=== PATIENT | male | born 1975 | race Caucasian/White ===

== ENCOUNTER → 2020-10-26 08:56 | Outpatient (BNVA) | payer MEDICAID, SELFPAY | PROVIDERS: Family Provider Nurse Practitioner; Visit Provider Nurse Practitioner Family | DX: I10 Essential (primary) hypertension (principal) | CPT/HCPCS: 80053; 80061; 84443; 85025 ==

== ENCOUNTER 2021-01-10 20:00 | Outpatient (CLI) | payer MEDICAID, SELFPAY | END 2021-01-10 20:01 | disposition home or self-care (01) | LOC: SLEEP 01-11 09:32 | PROVIDERS: Family Provider Nurse Practitioner; Visit Provider Nurse Practitioner Family | DX: G47.33 Obstructive sleep apnea (adult) (pediatric) (principal) | CPT/HCPCS: 95810 ==

== ENCOUNTER 2021-08-06 15:37 | Emergency (ER) | payer MEDICAID, SELFPAY ==
[2021-08-06 15:44] VITALS: BP 159/93; PULSE 101; RESP 18; TEMP 37.2; O2SAT 96; BMI 39.5
--- NOTE | 2021-08-06 16:34 | ECG_ITS ---
[facility] Test Date: 2021-08-06 Pat Name: Ambrose Solis Department: Room: Gender: Male Senior Net Engineer: : 1975 Requested By: Alfredo Palm Order Number: [id number] Parada MD: Irena Gibbons M.D. Measurements Intervals [place] Rate: 99 P: 45 AR: 143 QRS: 30 QRSD: 91 T: 65 QT: 326 QTc: 419 Interpretive Statements SINUS RHYTHM No previous ECG available for comparison Electronically Signed On 08-07-2021 12:09:13 ACCOUNTING FILE CLERK by Irena Gibbons M.D. [id number]
--- NOTE | 2021-08-06 16:34 | XRR_ITS ---
PROCEDURE INFORMATION: Exam: XR Chest Exam date and time: 08/06/2021 4:34 PM Age: 46 years old Clinical indication: Pain; Chest pressure; Additional info: Chest pain TECHNIQUE: Imaging protocol: XR of the chest. Views: 1 view. COMPARISON: No relevant prior studies available. FINDINGS: Lungs: Unremarkable. No consolidation. Small left upper lobe calcified granuloma. Pleural spaces: Unremarkable. No pleural effusion. No pneumothorax. Heart/Mediastinum: Unremarkable. No cardiomegaly. Bones/joints: Unremarkable. XR/XR chest 1V portable [id number] IMPRESSION: No acute findings.
--- NOTE | 2021-08-06 16:34 | W.ED.GENADLT ---
HPI - General Adult General: Chief complaint: General Medical Stated complaint: CHEST PAIN, SLEEPING DIFFICULTY Time Seen by Provider: 08/06/21 16:34 History of Present Illness: Mr Solis is a 46-year-old gentleman with significant past medical history of obesity, hypertension, GABBI not on CPAP who presents the emergency department due to generalized concerns. He reports a longstanding history of difficulty sleeping though this is perhaps been worse over the past few weeks. He endorses less than 1 hour of interrupted sleep per night. Primarily if this is related to his heart racing when he lays down and mild associated shortness of breath. He denies waking up panicked though does endorse history of sleep study which showed GABBI however he did not tolerate his CPAP machine. Additionally he has had intermittent episodes of pressure in his left anterior chest without other typical cardiac features. The one today occurred around noon lasted perhaps half an hour. Intensity of symptoms was moderate. Course is improved. He has noticed new symptom which is bilateral lower extremity edema which is mild but new. No other specific change in health, exacerbating, or relieving factors identified. Onset (ago): hour(s) Severity: moderate Review of Systems General: Reports: 10 or more systems reviewed and unremarkable except in HPI and below PFSH ED PFSH: Medical History Essential hypertension GABBI (obstructive sleep apnea) Surgical History History of appendectomy History of tonsillectomy Social History (Updated 08/15/21 @ 10:10 by Pita Montenegro MA) Smoking and tobacco status: current every day smoker (1 ppd 26 yrs) cigarettes Packs smoked per day: 1 Years cigarettes smoked: 26 Alcohol intake: never Physical Exam Const: COMMON NORMALS: alert GENERAL APPEARANCE: cooperative and well developed NUTRITIONAL APPEARANCE: obese HENMT: COMMON NORMALS: normocephalic and atraumatic HEAD & SCALP: normocephalic and atraumatic Eye: COMMON NORMALS: conjunctivae normal CONJUNCTIVA: Yes conjunctivae normal SCLERA: sclerae normal Neck/C-Spine: COMMON NORMALS: supple GENERAL: Yes trachea midline Resp: COMMON NORMALS: normal respiratory effort EFFORT & INSPECTION: Yes able to speak in complete sentences Cardio: COMMON NORMALS: regular rhythm RATE: tachycardic RHYTHM: regular rhythm GI: COMMON NORMALS: Soft to palpation PALPATION: Yes Soft to palpation and No Tenderness to palpation present (GI) PERCUSSION: normal to percussion Extremity: GENERAL: Yes normal exam except as noted and Yes edema (1+ below mid calf) Neuro: COMMON NORMALS: moves all extremities SENSORIUM/ORIENTATION: Yes alert and No Orientation impaired Psych: COMMON NORMALS: mental status grossly normal and Normal thought process present THOUGHT PROCESS: Normal thought process present Course ED course: - Patient was seen and evaluated by me at bedside - Patient placed on cardiac monitors, IV access obtained - Initial evaluation notable for exam as above -Antihypertensive ordered with good therapeutic effect - Labs notable for no leukocytosis, mildly increased hemoglobin are within normal limits. No acute hypotension. Troponin and delta troponin negative. Mild transaminitis of unclear etiology. BNP normal. Urinalysis not concerning for urinary tract infection. - Imaging notable for no acute finding noted on chest x-ray - Upon serial reexamination after treatment the patient was mildly improved - Based on patient history, evaluation, labs, and imaging as interpreted the most likely cause of the patient's condition is multifactorial. - The results of ED evaluation were discussed with the patient. Challenging situation, patient has various concerns and based on ED evaluation he did not require hospitalization at this time. He does require multiple services for outpatient follow-up. One of the greatest concerns that the patient has is his sleep difficulty however given his history of sleep apnea I believe prescription medications for sleep would be potentially harmful and therefore I will not prescribe. I did discuss possibility of [id number] medications. - I discussed prescriptions and/or symptomatic cares (if applicable) including appropriate and responsible use, followup plan, and return precautions. The patient verbalized understanding and felt safe for discharge. - Patient discharged in satisfactory condition. Note: Click bubbles or prepopulated narayanan in note writing are used for assistance with data collection and billing and are inherently more limited than narrative and other text portions of this note. Please use narrative for additional clinical history and defer to narrative/free test for any case of contradictory information. If information appears in only free text or click bubble it should be considered present or absent as reported. Please contact note customs entry writer for clarifications of clinical information or contradictory information. MDM is a brief summary, contradictory or erroneous seeming information should be clarified and full note should be reviewed. Vital Signs: Vital signs: Vital Signs Temperature 98.9 F 08/06/21 15:44 Pulse Rate 73 08/06/21 21:48 Respiratory Rate 22 H 08/06/21 21:48 Blood Pressure 179/100 08/06/21 21:48 Pulse Oximetry 98 08/06/21 21:48 MDM - General Adult Medical Decision Making 46-year-old gentleman presenting to the emergency department with concerns. ED evaluation without acute pathology requiring inpatient evaluation. I will message case management for assistance in scheduling outpatient follow-up. Satisfactory for discharge. Medical Records I reviewed the patient's medical records. Lab Data I reviewed the patient's lab results. : 08/06/21 17:06 08/06/21 17:06 Radiology Impressions Chest X-Ray 08/06/21 16:34 IMPRESSION: No acute findings. Laboratory Results WBC 9.6 10^3/uL (4.0-10.0) 08/06/21 17:06 RBC 5.70 10^6/uL (4.1-5.3) H 08/06/21 17:06 Hgb 16.6 g/dL (11.7-16.6) 08/06/21 17:06 Hct 49.4 % (42.0-52.0) 08/06/21 17:06 MCV 86.7 fl (80-94) 08/06/21 17:06 MCH 29.1 pg (28.0-34.0) 08/06/21 17:06 MCHC 33.6 g/dL (30.0-36.0) 08/06/21 17:06 RDW 12.6 % (12.1-15.1) 08/06/21 17:06 Plt Count 238 10^3/cmm (130-400) 08/06/21 17:06 MPV 9.2 fL (7.4-10.4) 08/06/21 17:06 Neut % (Auto) 49.6 % 08/06/21 17:06 Lymph % (Auto) 36.1 % 08/06/21 17:06 [place] % (Auto) 6.9 % 08/06/21 17:06 Eos % (Auto) 5.6 % 08/06/21 17:06 Baso % (Auto) 1.3 % 08/06/21 17:06 Neut # (Auto) 4.74 10^3/uL (1.8-7.7) 08/06/21 17:06 Lymph # (Auto) 3.5 10^3/uL (0.8-4.8) 08/06/21 17:06 [place] # (Auto) 0.7 10^3/uL (0.2-0.9) 08/06/21 17:06 Eos # (Auto) 0.5 10^3/uL (0.0-0.8) 08/06/21 17:06 Baso # (Auto) 0.1 10^3/uL (0.0-0.1) 08/06/21 17:06 Nucleated RBC % (auto) 0 % 08/06/21 17:06 Nucleated RBCs # 0.0 /100WBC 08/06/21 17:06 Sodium 139 mmol/L (136-145) 08/06/21 17:06 Potassium 4.1 mmol/L (3.5-5.1) 08/06/21 17:06 Chloride 101 mmol/L (98-107) 08/06/21 17:06 Carbon Dioxide 26 mmol/L (22-29) 08/06/21 17:06 Anion Gap 16.1 (5-19) 08/06/21 17:06 BUN 11 mg/dL (6-20) 08/06/21 17:06 Creatinine 0.8 mg/dL (0.7-1.2) 08/06/21 17:06 GFR Calculation 104.1 mL/min (90-130) 08/06/21 17:06 Glucose 130 mg/dL (65-115) H 08/06/21 17:06 Calculated Osmolality 289 mOsm/kg (285-295) 08/06/21 17:06 Calcium 9.8 mg/dL (8.5-10.5) 08/06/21 17:06 Total Bilirubin 0.3 mg/dL (0.15-1.2) 08/06/21 17:06 AST 32 U/L (0-40) 08/06/21 17:06 ALT 68 U/L (0-41) H 08/06/21 17:06 Alkaline Phosphatase 57 IU/L (40-130) 08/06/21 17:06 Troponin T Baseline 11 ng/L (0-15) 08/06/21 17:06 Troponin T 120 Minute 10.49 ng/L (0-15) 08/06/21 19:30 Delta Troponin T Not Reportable 08/06/21 19:30 NT-Pro-B Natriuret Pep 5 pg/mL (0-125) 08/06/21 17:06 Total Protein 6.4 g/dL (6.6-8.7) L 08/06/21 17:06 Albumin 4.0 g/dL (3.5-5.2) 08/06/21 17:06 Globulin 2.4 g/dL (1.3-4.6) 08/06/21 17:06 Lipase 48 U/L (13-60) 08/06/21 17:06 TSH 0.83 uIU/mL (0.27-4.20) 08/06/21 17:06 Urine Color Yellow (Yellow) 08/06/21 20:07 Urine Appearance Clear (CLEAR) 08/06/21 20:07 Urine pH 6.5 (5-7) 08/06/21 20:07 Ur Specific [place] 1.015 (1.005-1.030) 08/06/21 20:07 Urine Protein Neg (Negative) 08/06/21 20:07 Urine Glucose (UA) Norm (Normal) 08/06/21 20:07 Urine Ketones Negative (Negative) 08/06/21 20:07 Urine Blood Neg (Negative) 08/06/21 20:07 Urine Nitrate Negative (Negative) 08/06/21 20:07 Urine Bilirubin Neg (Negative) 08/06/21 20:07 Urine Urobilinogen Norm mg/dL (Negative) 08/06/21 20:07 Ur Leukocyte Esterase Negative (Negative) 08/06/21 20:07 EKG Data EKG 1: I personally reviewed and interpreted this EKG as follows: EKG interpretation date: 08/06/21 EKG interpretation time: 18:37 Interpretation: Twelve-lead EKG shows a regular rhythm at a rate of 85. KOSTAS 156, QRS ration 103, QTc 365. Normal axis. Interpretation: Sinus rhythm. Computer generated interpretation: Chest X-Ray 08/06/21 16:34 IMPRESSION: No acute findings. Discharge Plan Discharge Patient Disposition: Home Clinical Impression: GABBI (obstructive sleep apnea), Essential hypertension, Insomnia, Chest pain Condition: Stable Prescriptions: New Coreg 3.125 mg tablet 3.125 mg PO BID Qty: 60 0RF Rx Instructions: must administer with a meal/food No Action lisinopril 20 mg tablet 20 mg PO DAILY Qty: 90 1RF trazodone 50 mg tablet 25 mg PO DAILY Qty: 30 0RF niacin 50 mg Tablet 50 mg PO DAILY 0RF loratadine 10 mg Tablet 10 mg PO DAILY 0RF Discharge Orders: Discharge ED (Routine); Ordered 08/06/21 Ordered By: Alfredo Palm Discharge Diet: Usual diet Discharge Activity: Resume usual activity Patient Instructions: Chest Pain (ED), Hypertension (ED), Insomnia (ED), Obstructive Sleep Apnea Activity Restrictions/Additional Instructions: Thank you for visiting the emergency department. You were seen and evaluated for chest pain, high blood pressure, and sleep difficulties. As discussed the most likely cause of your symptoms is multifactorial and requires follow-up in the outpatient setting. I will message our disease case manager rn for follow-up with cardiology for outpatient testing, I will also message for ENT follow-up. Return to the ED for anything that you are concerned about and feel need ED evaluation. Coding Level of Care Code ED Distribution Field Engineer for Kadi Fwaugusto Exam Comprehensive
[2021-08-06 17:16] LABS: Basophils # 0.1 10^3/uL (0.0-0.1); Basophils % 1.3 %; Eosinophils # 0.5 10^3/uL (0.0-0.8); Eosinophils % 5.6 %; Hematocrit 49.4 % (42.0-52.0); Hemoglobin 16.6 g/dL (11.7-16.6); Lymphocytes # 3.5 10^3/uL (0.8-4.8); Lymphocytes % 36.1 %; Mean Corpuscular HGB Conc 33.6 g/dL (30.0-36.0); Mean Corpuscular Hemoglobin 29.1 pg (28.0-34.0); Mean Corpuscular Volume 86.7 fl (80-94); Mean Platelet Volume 9.2 fL (7.4-10.4); Monocytes # 0.7 10^3/uL (0.2-0.9); Monocytes % 6.9 %; Neutrophils # 4.74 10^3/uL (1.8-7.7); Neutrophils % 49.6 %; Nucleated Red Blood Cells % 0 %; Platelet Count 238 10^3/cmm (130-400); Red Cell Distribution Width 12.6 % (12.1-15.1); White Blood Count 9.6 10^3/uL (4.0-10.0)
[2021-08-06] MEDS: labetalol 5 mg/mL SDV 20mL 10 MG IVP (18:04)
[2021-08-06 18:08] LABS: Troponin(5th) Baseline 11 ng/L (0-15)
[2021-08-06 18:09] VITALS: BP 108/75; PULSE 93; RESP 14; O2SAT 96
[2021-08-06 18:15] LABS: Alanine Aminotransferase 68 U/L (0-41); Alkaline Phosphatase 57 IU/L (40-130); Anion Gap 16.1 (5-19); Aspartate Amino Transferase 32 U/L (0-40); Blood Urea Nitrogen 11 mg/dL (6-20); Calcium 9.8 mg/dL (8.5-10.5); Carbon Dioxide 26 mmol/L (22-29); Chloride 101 mmol/L (98-107); Creatinine Clr Calc Pharmacy 148.5807; Globulin 2.4 g/dL (1.3-4.6); Glomerular Filtration Rate 104.1 mL/min (90-130); Glucose 130 mg/dL (65-115); Lipase 48 U/L (13-60); NT Pro B Type Natriuretic Pept 5 pg/mL (0-125); Osmolality Calculated 289 mOsm/kg (285-295); Potassium 4.1 mmol/L (3.5-5.1); Sodium 139 mmol/L (136-145); Thyroid Stimulating Hormone 0.83 uIU/mL (0.27-4.20); Total Bilirubin 0.3 mg/dL (0.15-1.2); Total Protein 6.4 g/dL (6.6-8.7)
--- NOTE | 2021-08-06 18:34 | ECG_ITS ---
[facility] Test Date: 2021-08-06 Pat Name: Ambrose Solis Department: Room: Gender: Male Grain Scooper: : 1975 Requested By: Alfredo Palm Order Number: [id number] Parada MD: Irena Gibbons M.D. Measurements Intervals [place] Rate: 85 P: 70 NC: 156 QRS: 74 QRSD: 103 T: 63 QT: 323 QTc: 385 Interpretive Statements SINUS RHYTHM Compared to ECG 08/06/2021 15:43:59 No significant changes Electronically Signed On 08-07-2021 12:18:01 WORM SORTER by Irena Gibbons M.D. [id number]
[2021-08-06 19:25] VITALS: BP 119/75; PULSE 82; RESP 20; O2SAT 92
[2021-08-06 20:15] LABS: Troponin 5 2HR 10.49 ng/L (0-15)
[2021-08-06 20:16] LABS: Add Urine Microscopic? NO; Charge for UA Resulting for Rev
[2021-08-06 20:43] LABS: Bilirubin Urine Neg (Negative); Blood Urine Neg (Negative); Glucose Urine UA Norm (Normal); Ketones Urine Negative (Negative); Leukocyte Esterase Urine Negative (Negative); Nitrate Urine Negative (Negative); Protein Urine Neg (Negative); Specific Gravity, Urine 1.015 (1.005-1.030); Urine Appearance Clear (CLEAR); Urine Color Yellow (Yellow); Urobilinogen Urine Norm (Negative); pH Urine 6.5 (5-7)
[2021-08-06 21:48] VITALS: BP 179/100; PULSE 73; RESP 22; O2SAT 98
--- NOTE | 2021-08-09 05:40 | DCPLANNER ---
Addendum entered by Sydnee Joy 08/16/21 10:49: Patient had a follow up appointment scheduled for 08.15.21 with ENT - patient did attend appointment. engineering program manager asked patient if he had a primary care physician, patient stated that he sees a physician at [facility]. Original Note: engineering program manager had message to schedule a follow up appointment for patient with ENT. engineering program manager emailed patients information to Elvis Mckeon at [facility] General Surgery / ENT clinic. Patients information will be printed and reviewed. Clinic will call patient with appointment information.
--- NOTE | 2021-08-09 06:37 | DCPLANNER ---
Addendum entered by Sydnee Joy 09/02/21 14:26: Chelsi Garcia and Tata Mcghee from centralized scheduling contacted caseworker stating that patients insurance denied the ordered stress test. RE: ?PATIENT: ?TORSTEN HAYES ?:?1975 ?PHYSICIAN:?KAT EUBANKS TEST ORDERED:? ??CARLOS SCAN ([id number]) The above referenced request has been DENIED by the Patient?s insurance ([place] [employer]).? You will need to contact the Patient?s PCP to advise for further handling.? Patient called phone number [phone] unable to speak with patient or leave a voicemail. food processing plant manager called phone number [phone], this number was no longer in service. Original Note: food processing plant manager had message to schedule an outpatient stress test and an echo cardiogram for patient. Case manger faxed signed order to centralized scheduling, who will call patient with appointment information.
== END 2021-08-06 21:49 | disposition home or self-care (01) ==
PROVIDERS: Physician Assistant; Emergency Provider Emergency Medicine
DX: G47.33 Obstructive sleep apnea (adult) (pediatric) (principal); I10 Essential (primary) hypertension; G47.00 Insomnia, unspecified; R07.9 Chest pain, unspecified; F17.210 Nicotine dependence, cigarettes, uncomplicated
CPT/HCPCS: 71045; 80053; 81003; 83690; 83880; 84443; 84484; 85025; 93005; 96374; 99284; J3490

== ENCOUNTER → 2021-08-11 12:48 | Outpatient (BNVA) | payer MEDICAID, SELFPAY | PROVIDERS: Visit Provider Internal Medicine | DX: R00.0 Tachycardia, unspecified (principal); R00.2 Palpitations; I49.3 Ventricular premature depolarization | CPT/HCPCS: 93225 ==

== ENCOUNTER → 2021-08-18 15:02 | Outpatient (BNVA) | payer MEDICAID, SELFPAY | PROVIDERS: Visit Provider Nurse Practitioner Family | DX: R73.09 Other abnormal glucose (principal) | CPT/HCPCS: 83036 ==

== ENCOUNTER → 2021-09-19 09:50 | Outpatient (BNVA) | payer MEDICAID, SELFPAY | PROVIDERS: Visit Provider Otolaryngology | DX: G47.33 Obstructive sleep apnea (adult) (pediatric) (principal); I10 Essential (primary) hypertension; R00.0 Tachycardia, unspecified; E66.9 Obesity, unspecified; Z68.39 Body mass index [BMI] 39.0-39.9, adult; F17.210 Nicotine dependence, cigarettes, uncomplicated | CPT/HCPCS: 99213 ==

== ENCOUNTER 2021-10-13 20:00 | Outpatient (CLI) | payer MEDICAID, SELFPAY | END 2021-10-13 20:01 | disposition home or self-care (01) | LOC: SLEEP 10-14 06:17 | PROVIDERS: Visit Provider Otolaryngology | DX: G47.33 Obstructive sleep apnea (adult) (pediatric) (principal) | CPT/HCPCS: 95811 ==

== ENCOUNTER → 2021-11-07 13:17 | Outpatient (BNVA) | payer MEDICAID, SELFPAY | PROVIDERS: Visit Provider Otolaryngology | DX: G47.33 Obstructive sleep apnea (adult) (pediatric) (principal); F17.210 Nicotine dependence, cigarettes, uncomplicated | CPT/HCPCS: 99213 ==

== ENCOUNTER 2022-06-19 11:42 | Outpatient (CLI) | payer MEDICAID, SELFPAY ==
--- NOTE | 2022-06-19 12:00 | US_ITS ---
WS: [id number] THYROID ULTRASOUND HISTORY: E04.9 - Nontoxic goiter, unspecified COMPARISON: None available. Right lobe: 4.4 cm x 3.0 cm x 6.7 cm (w x ap x l). Volume: 46.2 cm3. Markedly enlarged nodular thyroid. Thyroid is a replaced by mildly hyperechoic nodules. No echogenic foci. The largest nodule measures approximately 2.6 x 2.8 x 2.1 cm in the superior lobe. Left lobe: 2.7 cm x 3.0 cm x 5.3 cm (w x ap x l). Volume: 22.2 cm3. Enlarged nodular gland. Mildly hyperechoic nodule with respect to the remaining gland measures 2.8 x 2.3 x 2.7 cm in superior pole. No significant increased vascularity. No echogenic foci. Isthmus: 2.1 cm. Enlarged isthmus with a nodule. US/US thyroid [id number] IMPRESSION: Enlarged multinodular goiter. All nodules appear very similar in appearance. No echogenic foci or hypoechoic suspicious nodule.
== END 2022-06-19 11:43 | disposition home or self-care (01) ==
LOC: RAD 11:43
PROVIDERS: Visit Provider Nurse Practitioner Family
DX: E04.2 Nontoxic multinodular goiter (principal)
CPT/HCPCS: 76536

== ENCOUNTER 2022-08-18 03:25 | Emergency (ER) | payer MEDICAID, SELFPAY ==
[2022-08-18 03:32] VITALS: BP 145/72; PULSE 96; RESP 18; TEMP 36.7; O2SAT 96; BMI 41.3
--- NOTE | 2022-08-18 03:33 | XRR_ITS ---
PROCEDURE INFORMATION: Exam: XR Right Hand Exam date and time: 08/18/2022 3:51 AM Age: 47 years old Clinical indication: Finger(s); Right; Patient HX: C/O focal pain to 5th digit. ; Additional info: Hand injury TECHNIQUE: Imaging protocol: Radiologic exam of the right hand. Views: 3 or more views. COMPARISON: No relevant prior studies available. FINDINGS: Bones/joints: No acute fracture or dislocation. Persistent flexion of the 5th digit DIP joint, correlate clinically. Soft tissues: Grossly unremarkable. XR/XR hand RT min 3V* [id number] IMPRESSION: No acute fracture or dislocation, see above.
--- NOTE | 2022-08-18 03:33 | XRR_ITS ---
PROCEDURE INFORMATION: Exam: XR Chest Exam date and time: 08/18/2022 3:51 AM Age: 47 years old Clinical indication: Cough and wheezing; Patient HX: C/O cough with wheezing; Additional info: SOB TECHNIQUE: Imaging protocol: Radiologic exam of the chest. Views: 1 view. COMPARISON: CR XR chest 1V portable [id number] 08/06/2021 4:55 PM FINDINGS: Lungs: No consolidation. Small left apical granuloma versus anterior left 1st rib enostosis is again noted. Pleural spaces: No pleural effusion. No pneumothorax. Heart/Mediastinum: No cardiomegaly. Bones/joints: No acute fracture. XR/XR chest 1V portable [id number] IMPRESSION: No acute cardiopulmonary findings.
--- NOTE | 2022-08-18 03:34 | ED_ITS ---
HPI - SOB/Dyspnea General: Chief Complaint: Shortness of Breath/Dyspnea Stated Complaint: coughing; loc; r hand injury Time Seen by Provider: 08/18/22 03:27 Source: patient Mode of arrival: ambulatory Limitations: no limitations History of Present Illness: HPI Narrative: 47-year-old male states that his neighbors has been burning a lot of wood and he states that he is over the last 2 days has been exposed to it and states he has been having a dry cough with wheezing he states he had severe coughing fits where he felt like his get a pass out he states this morning it woke up had a coughing fit and did pass out he states he passed out a landed on his right hand and has right pinky pain. He denies any fever denies any sputum production denies any chest pain denies any headache Associated symptoms: Reports extremity pain; Deny abdominal pain, chest pain, fever(s), nausea or vomiting Review of Systems Const: Denies: fever(s), chills, body aches or change in appetite Eyes: Denies: blurry vision or eye discomfort ENMT: Denies: throat pain or dental pain Card: Denies: chest pain Resp: Reports: non-productive cough and wheezing GI: Denies: abdominal pain, nausea, vomiting or diarrhea : Denies: dysuria Musc: Reports: extremity pain Skin/Breast: Denies: rash Neuro: Denies: headache(s) Psych: Denies: depression Rc/Lymph: Denies: easy bruising All/Imm: Denies: urticaria PFSH ED PFSH: Medical History Essential hypertension Surgical History History of appendectomy History of tonsillectomy Social History Smoking and tobacco status: current every day smoker cigarettes Packs smoked per day: 1 Years cigarettes smoked: 26 Alcohol intake: never Physical Exam Const: COMMON NORMALS: no acute distress, patient oriented x3 and healthy appearing HENMT: COMMON NORMALS: normocephalic and atraumatic HEAD & SCALP: n ormocephalic and atraumatic Eye: COMMON NORMALS: Equal, round and reactive pupils present and EOMs intact bilaterally PUPIL: Yes Equal, round and reactive pupils present Neck/C-Spine: COMMON NORMALS: full ROM and supple Chest: COMMONS NORMALS: normal inspection of the chest and normal palpation of entire chest wall Resp: COMMON NORMALS: normal respiratory effort, No retractions, No use of accessory muscles and clear to auscultation bilaterally AUSCULTATION: clear to auscultation bilaterally and wheezes Cardio: COMMON NORMALS: regular rate, regular rhythm and No murmurs present (Cardio) RATE: regular rate RHYTHM: regular rhythm GI: COMMON NORMALS: Normal to inspection, nondistended, normoactive bowel sounds present, Soft to palpation, non-tender and no masses PALPATION: Yes Soft to palpation Extremity: COMMON NORMALS: normal to inspection and full ROM NARRATIVE EXTREMITY EXAM: tenderness over right pinky finger Neuro: COMMON NORMALS: patient oriented x3, moves all extremities and no focal motor deficits Psych: COMMON NORMALS: mental status grossly normal, Normal thought process present and cooperative THOUGHT PROCESS: Normal thought process present Skin: COMMON NORMALS: no rashes or lesions noted and no wounds GENERAL SKIN EXAM: no rashes or lesions noted Course Vital Signs: Vital signs: Vital Signs Temperature 98.1 F 08/18/22 03:32 Pulse Rate 96 08/18/22 03:32 Respiratory Rate 18 08/18/22 03:32 Blood Pressure 145/72 08/18/22 03:32 Pulse Oximetry 96 08/18/22 03:32 Oxygen Delivery Me thod 08/18/22 03:32 MDM - SOB/Dyspnea Medical Decision Making Patient presents with a cough wheezing likely reactive airway disease from smoke exposure he feels improved here after steroids and breathing treatment x-ray shows no pneumonia he is in no distress he does have a finger sprain to his right pinky x-ray showed no fracture patient placed in a finger splint we will prescribe him albuterol and steroids for home he is to follow-up with PCP and return if worsening. Lab Data 08/18/22 03:47 08/18/22 03:47 Labs/Radiology: Laboratory Results WBC 10.8 10^3/uL (4.0-10.0) H 08/18/22 03:47 RBC 6.04 10^6/uL (4.1-5.3) H 08/18/22 03:47 Hgb 17.7 g/dL (11.7-16.6) H 08/18/22 03:47 Hct 54.0 % (42.0-52.0) H 08/18/22 03:47 MCV 89.4 fl (80-94) 08/18/22 03:47 MCH 29.3 pg (28.0-34.0) 08/18/22 03:47 MCHC 32.8 g/dL (30.0-36.0) 08/18/22 03:47 RDW 12.4 % (12.1-15.1) 08/18/22 03:47 Plt Count 234 10^3/cmm (130-400) 08/18/22 03:47 MPV 9.0 fL (7.4-10.4) 08/18/22 03:47 Neut % (Auto) 69.8 % 08/18/22 03:47 Lymph % (Auto) 19.8 % 08/18/22 03:47 [place] % (Auto) 5.3 % 08/18/22 03:47 Eos % (Auto) 3.8 % 08/18/22 03:47 Baso % (Auto) 1.0 % 08/18/22 03:47 Neut # (Auto) 7.54 10^3/uL (1.8-7.7) 08/18/22 03:47 Lymph # (Auto) 2.1 10^3/uL (0.8-4.8) 08/18/22 03:47 [place] # (Auto) 0.6 10^3/uL (0.2-0.9) 08/18/22 03:47 Eos # (Auto) 0.4 10^3/uL (0.0-0.8) 08/18/22 03:47 Baso # (Auto) 0.1 10^3/uL (0.0-0.1) 08/18/22 03:47 Nucleated RBC % (auto) 0 % 08/18/22 03:47 Nucleated RBCs # 0.0 /100WBC 08/18/22 03:47 Sodium 141 mmol/L (136-145) 08/18/22 03:47 Potassium 3.9 mmol/L (3.5-5.1) 08/18/22 03:47 Chloride 105 mmol/L (98-107) 08/18/22 03:47 Carbon Dioxide 26 mmol/L (22-29) 08/18/22 03:47 Anion Gap 13.9 (5-19) 08/18/22 03:47 BUN 11 mg/dL (6-20) 08/18/22 03:47 Creatinine 1.0 mg/dL (0.7-1.2) 08/18/22 03:47 GFR Calculation 80.1 mL/min (90-130) L 08/18/22 03:47 Glucose 127 mg/dL (65-115) H 08/18/22 03:47 Calculated Osmolality 293 mOsm/kg (285-295) 08/18/22 03:47 Calcium 9.1 mg/dL (8.5-10.5) 08/18/22 03:47 Total Bilirubin 0.5 mg/dL (0.15-1.2) 08/18/22 03:47 AST 20 U/L (0-40) 08/18/22 03:47 ALT 39 U/L (0-41) 08/18/22 03:47 Alkaline Phosphatase 50 U/L (40-130) 08/18/22 03:47 Total Protein 6.7 g/dL (6.6-8.7) 08/18/22 03:47 Albumin 3.9 g/dL (3.5-5.2) 08/18/22 03:47 Globulin 2.8 g/dL (1.3-4.6) 08/18/22 03:47 Discharge Plan Discharge Patient Disposition: Home Clinical Impression: Reactive airway disease, Finger sprain, Syncope Condition: Stable Prescriptions: New prednisone 50 mg tablet 50 mg PO DAILY Qty: 5 0RF albuterol sulfate 90 mcg/actuation HFA aerosol inhaler 2 inh INHALATION Q6H PRN (Reason: shortness of breath or wheezing) Qty: 8 0RF No Action lisinopril 20 mg tablet See Rx Instructions .ROUTE .COMPLEX Qty: 90 1RF Dose Instruction: TAKE ONE TABLET BY MOUTH ONCE DAILY Rx Instructions: TAKE ONE TABLET BY MOUTH ONCE DAILY niacin 50 mg Tablet 50 mg PO DAILY loratadine 10 mg Tablet 10 mg PO DAILY Coreg 3.125 mg tablet 3.125 mg PO BID Qty: 60 0RF Rx Instructions: must administer with a meal/food Discharge Orders: Discharge ED (Routine); Ordered 08/18/22 Ordered By: Manjeet Argueta Referrals: Altagracia Stock, RONAL [Primary Care Provider] - 1-3 days Discharge Diet: Advance as tolerated Discharge Activity: Resume usual activity Patient Instructions: Reactive Airways Disease (ED), Finger Sprain (ED) Coding Level of Care Code ED Mortgage Loan Computation Clerk for Kadi Mcginnis
[2022-08-18 03:54] LABS: Basophils # 0.1 10^3/uL (0.0-0.1); Eosinophils # 0.4 10^3/uL (0.0-0.8); Eosinophils % 3.8 %; Hemoglobin 17.7 g/dL (11.7-16.6); Lymphocytes # 2.1 10^3/uL (0.8-4.8); Lymphocytes % 19.8 %; Mean Corpuscular HGB Conc 32.8 g/dL (30.0-36.0); Mean Corpuscular Hemoglobin 29.3 pg (28.0-34.0); Mean Corpuscular Volume 89.4 fl (80-94); Monocytes # 0.6 10^3/uL (0.2-0.9); Monocytes % 5.3 %; Neutrophils # 7.54 10^3/uL (1.8-7.7); Neutrophils % 69.8 %; Nucleated Red Blood Cells % 0 %; Platelet Count 234 10^3/cmm (130-400); Red Blood Count 6.04 10^6/uL (4.1-5.3); Red Cell Distribution Width 12.4 % (12.1-15.1); White Blood Count 10.8 10^3/uL (4.0-10.0)
[2022-08-18 04:12] LABS: Alanine Aminotransferase 39 U/L (0-41); Albumin Level 3.9 g/dL (3.5-5.2); Alkaline Phosphatase 50 U/L (40-130); Anion Gap 13.9 (5-19); Aspartate Amino Transferase 20 U/L (0-40); Blood Urea Nitrogen 11 mg/dL (6-20); Calcium 9.1 mg/dL (8.5-10.5); Carbon Dioxide 26 mmol/L (22-29); Chloride 105 mmol/L (98-107); Globulin 2.8 g/dL (1.3-4.6); Glomerular Filtration Rate 80.1 mL/min (90-130); Glucose 127 mg/dL (65-115); Osmolality Calculated 293 mOsm/kg (285-295); Potassium 3.9 mmol/L (3.5-5.1); Sodium 141 mmol/L (136-145); Total Bilirubin 0.5 mg/dL (0.15-1.2); Total Protein 6.7 g/dL (6.6-8.7)
[2022-08-18] MEDS: albuterol 2.5 mg/3 mL Neb INHALATION (04:24)
[2022-08-18] MEDS: ipratropium 0.5 mg/2.5 mL Neb INHALATION (04:24)
[2022-08-18 04:26] VITALS: PULSE 83; RESP 15; O2SAT 95
[2022-08-18 04:53] VITALS: BP 116/59; PULSE 89; RESP 16; O2SAT 92
== END 2022-08-18 05:04 | disposition home or self-care (01) ==
PROVIDERS: Emergency Provider Emergency Medicine; PCP Nurse Practitioner Family
DX: J45.909 Unspecified asthma, uncomplicated (principal); R55 Syncope and collapse; S63.616A Unspecified sprain of right little finger, initial encounter; W18.39XA Other fall on same level, initial encounter; I10 Essential (primary) hypertension; F17.210 Nicotine dependence, cigarettes, uncomplicated
CPT/HCPCS: 71045; 73130; 80053; 85025; 94640; 96374; 99284; J2930; J7613; J7644

== ENCOUNTER 2022-09-11 07:55 | Outpatient (CLI) | payer MEDICAID, SELFPAY ==
[2022-09-12 14:00] LABS: T3 Total 243 ng/dL (76-181)
== END 2022-09-11 07:56 | disposition home or self-care (01) ==
PROVIDERS: PCP Nurse Practitioner Family; Visit Provider Otolaryngology
DX: E04.1 Nontoxic single thyroid nodule (principal)
CPT/HCPCS: 36415; 84480

== ENCOUNTER → 2022-09-21 10:26 | Outpatient (BNVA) | payer MEDICAID, SELFPAY | PROVIDERS: PCP Nurse Practitioner Family; Referring Provider Nurse Practitioner Family; Visit Provider Nurse Practitioner Family | DX: M20.011 Mallet finger of right finger(s) (principal) | CPT/HCPCS: 73130 ==

== ENCOUNTER 2022-09-25 09:18 | Outpatient (CLI) | payer MEDICAID, SELFPAY ==
--- NOTE | 2022-09-25 10:15 | US_ITS ---
WS: [id number] ULTRASOUND-GUIDED RIGHT THYROID NODULE FNA HISTORY: Thyroid nodule Procedure, risks, and complications were explained to the patient. Consent has been obtained. Comparison: 06/19/2022. Patient has numerous bilateral thyroid nodules. The most concerning nodule is identified in the mid R IGHT thyroid. This nodule will be targeted for biopsy. The remaining nodules are all very similar in appearance. No one nodule is more concerning than another. It is not possible to biopsy all of these nodules. The skin is cleansed with ChloraPrep and anesthetized with 1% buffered lidocaine. FNA performed with 25 gauge needles. medical office technologist is present to fix slides. US/US biopsy/FNA thyroid [id number] IMPRESSION: Uncomplicated FNA of a RIGHT thyroid nodule. Final pathology results pending.
== END 2022-09-25 09:19 | disposition home or self-care (01) ==
LOC: RAD 09:20
PROVIDERS: PCP Nurse Practitioner Family; Visit Provider Otolaryngology
DX: E04.1 Nontoxic single thyroid nodule (principal)
CPT/HCPCS: 10005; 36415; 84439; 84443; 84481; 88173

== ENCOUNTER → 2022-10-04 14:13 | Outpatient (BNVA) | payer MEDICAID, SELFPAY | PROVIDERS: PCP Nurse Practitioner Family; Visit Provider Nurse Practitioner Family | DX: E04.1 Nontoxic single thyroid nodule (principal); E05.90 Thyrotoxicosis, unspecified without thyrotoxic crisis or storm | CPT/HCPCS: 86376 ==

== ENCOUNTER 2022-10-10 13:47 | Outpatient (CLI) | payer MEDICAID, SELFPAY ==
--- NOTE | 2022-10-10 13:45 | MR_ITS ---
WS: [id number] MRI RIGHT HAND without CONTRAST. COMPARISON: Radiograph 09/21/2022 Multiplanar, multisequence imaging is performed without contrast. History: Injured fifth finger. Unable to straighten finger. No fracture or marrow edema involving the fifth finger. Normal alignment of the PIP and DIP joints. T here is mild soft tissue edema along the dorsal surface of the fifth finger at the level of the middl e to distal phalanx and at the DIP joint. Discontinuity of the extensor tendon and hawkins. There is mil d thickening and increased signal within the extensor tendon but the collateral ligaments appear inta ct. MR/MR hand RT wo con* [id number] IMPRESSION: 1. Abnormal signal within the extensor tendon at the level of the middle phala nx through the DIP joint of the fifth finger. Consistent with a high-grade tear . The tendon is thickened and of increased T2 signal towards the DIP joint. The collateral ligaments remain intact. 2. No fracture or marrow edema.
== END 2022-10-10 13:48 | disposition home or self-care (01) ==
LOC: RAD 13:50
PROVIDERS: PCP Nurse Practitioner Family; Visit Provider Nurse Practitioner Family
DX: S69.91XA Unspecified injury of right wrist, hand and finger(s), initial encounter (principal); X58.XXXA Exposure to other specified factors, initial encounter
CPT/HCPCS: 73218

== ENCOUNTER → 2022-11-01 08:56 | Outpatient (BNVA) | payer MEDICAID, SELFPAY | PROVIDERS: PCP Nurse Practitioner Family; Visit Provider Nurse Practitioner Family | DX: R79.89 Other specified abnormal findings of blood chemistry (principal) | CPT/HCPCS: 83516 ==

== ENCOUNTER → 2022-11-16 14:30 | Outpatient (BNVA) | payer MEDICAID, SELFPAY | PROVIDERS: PCP Nurse Practitioner Family; Visit Provider Nurse Practitioner Family | DX: R79.89 Other specified abnormal findings of blood chemistry (principal); R53.83 Other fatigue; W57.XXXA Bitten or stung by nonvenomous insect and other nonvenomous arthropods, initial encounter; Z68.41 Body mass index [BMI] 40.0-44.9, adult; E04.1 Nontoxic single thyroid nodule | CPT/HCPCS: 86000; 86618; 86666; 86757 ==

== ENCOUNTER → 2022-12-22 16:15 | Outpatient (BNVA) | payer MEDICAID, SELFPAY | PROVIDERS: PCP Nurse Practitioner Family; Visit Provider Nurse Practitioner Family | DX: R79.89 Other specified abnormal findings of blood chemistry (principal) | CPT/HCPCS: 84439; 84443; 84480 ==

== ENCOUNTER → 2023-01-04 13:12 | Outpatient (BNVA) | payer MEDICAID, SELFPAY | PROVIDERS: PCP Nurse Practitioner Family; Visit Provider Internal Medicine | DX: R79.89 Other specified abnormal findings of blood chemistry (principal); E04.2 Nontoxic multinodular goiter | CPT/HCPCS: 36415; 84480; 84481 ==

== ENCOUNTER 2023-01-24 10:29 | Outpatient (CLI) | payer MEDICAID, SELFPAY ==
--- NOTE | 2023-01-24 10:48 | NM_ITS ---
WS: [id number] NUCLEAR MEDICINE 24 HOUR I-123 THYROID UPTAKE INDICATION: Multinodular goiter TECHNIQUE: I-123 24 HOUR THYROID UPTAKE WITH PLANAR IMAGING. 117 UCI OMAR 123 COMPARISON: Ultrasound 06/19/2022 and FNA 09/25/2022 FINDINGS: 24-hour thyroid uptake within normal limits measuring 30.31%. Heterogeneous nodular thyroid uptake bilaterally compatible with multinodular goiter. Large cold photopenic defect within the RIGHT mid thyroid corresponds to the previously biopsied RIGH T mid thyroid nodule. Multinodular thyroid RIGHT greater than LEFT. NORMAL 24H THRYOID UPTAKE 8-35% IMPRESSION: Normal 24-hour thyroid uptake measuring 30.31%
== END 2023-01-24 10:30 | disposition home or self-care (01) ==
PROVIDERS: PCP Nurse Practitioner Family; Visit Provider Internal Medicine
DX: E04.2 Nontoxic multinodular goiter (principal); R79.89 Other specified abnormal findings of blood chemistry
CPT/HCPCS: 36415; 78014; 84480; 84481; A9516

== ENCOUNTER → 2023-02-07 13:36 | Outpatient (BNVA) | payer MEDICAID, SELFPAY | PROVIDERS: PCP Nurse Practitioner Family; Visit Provider Nurse Practitioner Family | DX: R50.9 Fever, unspecified (principal); R53.83 Other fatigue | CPT/HCPCS: 87400; 87426 ==

== ENCOUNTER 2023-03-07 12:26 | Outpatient (CLI) | payer MEDICAID, SELFPAY | END 2023-03-07 12:27 | disposition home or self-care (01) | LOC: LAB 12:27 | PROVIDERS: PCP Nurse Practitioner Family; Visit Provider Internal Medicine | DX: R79.89 Other specified abnormal findings of blood chemistry (principal); Z79.899 Other long term (current) drug therapy | CPT/HCPCS: 36415; 84439; 84443; 84480 ==

== ENCOUNTER 2023-04-09 09:30 | Outpatient (CLI) | payer MEDICAID, SELFPAY ==
[2023-04-09] MEDS: gadobenate dimeglumine 20 mL vial IV (11:26)
--- NOTE | 2023-04-09 11:28 | MR_ITS ---
WS: [id number] MRI HEAD WITHOUT AND WITH CONTRAST WITH ATTENTION TO THE PITUITARY TECHNIQUE: Sagittal T1, T2 axial, T2 axial FLAIR, axial susceptibility weighted imaging, axial diffus ion weighted images, and coronal T2 images were obtained. Pre and post-T1 axial and post T1 coronal i mages. ADC and FSPGR images. High resolution pituitary protocol utilized. Dynamic pituitary imaging. CLINICAL INFORMATION: pituitary abnormality COMPARISON: None. FINDINGS: No evidence of restricted diffusion to suggest acute ischemia. Ventricular system and basil ar cisterns are patent. A few tiny foci of T2 hyperintensity in the subcortical white matter of doubt ful clinical significance. No significant parenchymal volume loss. Normal posterior fossa. Normal vas cular flow voids at the skull base. No extra-axial fluid collections. No mass or mass effect. Mild mu cosal thickening in the paranasal sinuses. Mastoid air cells are well aerated. No hemosiderin on susc eptibly weighted images. No abnormal gadolinium enhancement. Normal dural venous sinuses. Normal optic chiasm and pituitary in fundibulum. No evidence of hypoenhancing pituitary lesion. No evidence of sellar or suprasellar mass. Normal cavernous sinuses and Meckel's cave. Normal enhancing pituitary tissue. IMPRESSION: 1. No evidence of pituitary microadenoma. Normal enhancing pituitary tissue. 2. No suspicious intracranial signal normalities. 3. No abnormal gadolinium enhancement. 4. No other suspicious findings.
== END 2023-04-09 09:31 | disposition home or self-care (01) ==
LOC: RAD 09:30
PROVIDERS: PCP Nurse Practitioner Family; Visit Provider Internal Medicine
DX: E23.7 Disorder of pituitary gland, unspecified (principal)
CPT/HCPCS: 70553; A9577

== ENCOUNTER → 2023-05-22 09:00 | Outpatient (BNVA) | payer MEDICAID, SELFPAY | PROVIDERS: PCP Nurse Practitioner Family; Visit Provider Internal Medicine | DX: E07.9 Disorder of thyroid, unspecified (principal); R79.89 Other specified abnormal findings of blood chemistry; E04.2 Nontoxic multinodular goiter; E23.7 Disorder of pituitary gland, unspecified | CPT/HCPCS: 80053; 83001; 83002; 84146; 84403; 84439; 84443; 85025; G0103 ==

== ENCOUNTER 2023-07-10 09:26 | Oncology outpatient (recurring) (ONCR) | payer MEDICAID, SELFPAY ==
[2023-07-10 11:02] LABS: Basophils # 0.1 10^3/uL (0.0-0.1); Basophils % 1.3 %; Eosinophils # 0.6 10^3/uL (0.0-0.8); Eosinophils % 5.4 %; Hematocrit 53.3 % (37-53); Lymphocytes # 4.1 10^3/uL (0.8-4.8); Lymphocytes % 39.6 %; Mean Corpuscular HGB Conc 34.1 g/dL (30-55); Mean Corpuscular Hemoglobin 29.7 pg (27-33); Mean Corpuscular Volume 87.1 fl (82-101); Mean Platelet Volume 9.1 fL (7.4-10.4); Monocytes # 0.8 10^3/uL (0.2-0.9); Monocytes % 7.7 %; Neutrophils # 4.68 10^3/uL (1.8-7.7); Neutrophils % 45.5 %; Nucleated Red Blood Cells % 0 %; Platelet Count 235 10^3/cmm (157-399); Red Blood Count 6.12 10^6/uL (3.85-5.65); Red Cell Distribution Width 12.7 % (12.1-15.1); White Blood Count 10.26 10^3/uL (3.29-11.43)
[2023-07-10 11:30] LABS: Alanine Aminotransferase 53 U/L (0-41); Albumin Level 3.9 g/dL (3.5-5.2); Alkaline Phosphatase 60 U/L (40-130); Anion Gap 12.7 (5-19); Aspartate Amino Transferase 22 U/L (0-40); Blood Urea Nitrogen 11 mg/dL (6-20); Calcium 9.3 mg/dL (8.5-10.5); Carbon Dioxide 27 mmol/L (22-29); Chloride 103 mmol/L (98-107); Creatinine Clr Calc Pharmacy 133.6886; Globulin 2.8 g/dL (1.3-4.6); Glomerular Filtration Rate 90.4 mL/min (90-130); Glucose 98 mg/dL (65-115); Iron 72 ug/dL (59-158); Lactate Dehydrogenase 133 U/L (135-225); Osmolality Calculated 287 mOsm/kg (285-295); Percent Saturation 25.8 % (20-50); Potassium 3.7 mmol/L (3.5-5.1); Sodium 139 mmol/L (136-145); Total Bilirubin 0.4 mg/dL (0.15-1.2); Total Iron Binding Capacity 278 mcg/dl; Total Protein 6.7 g/dL (6.6-8.7); Unsaturated Iron Binding 206 ug/dL (112-347)
[2023-07-10 11:38] LABS: Vitamin B12 259 pg/mL (232-1245)
[2023-07-12 12:05] LABS: Erythropoietin 11.8 mIU/mL (2.6-18.5)
[2023-07-19 11:19] LABS: CALR Exon 9 Mutation NOT DETECTED (NOT DETECTED); CSF3R Exon 14/17 Mutation NOT DETECTED (NOT DETECTED); JAK2 Exon 12 Mutation NOT DETECTED (NOT DETECTED); JAK2 V617 Block Specimen ID NG; JAK2 V617 Clinical Indication NG; JAK2 V617 Mutation NOT DETECTED (NOT DETECTED); JAK2 V617 Specimen Source NG; MPL Exon 12 Mutation NOT DETECTED (NOT DETECTED)
== END 2023-08-02 23:59 | disposition home or self-care (01) ==
LOC: ONCMED 09:28
PROVIDERS: Internal Medicine Medical Oncology; PCP Nurse Practitioner Family; Visit Provider Internal Medicine
DX: D75.1 Secondary polycythemia (principal); R53.83 Other fatigue; F17.210 Nicotine dependence, cigarettes, uncomplicated
CPT/HCPCS: 36415; 80053; 81270; 81279; 81339; 81479; 82607; 82668; 83540; 83550; 83615; 85025

== ENCOUNTER → 2023-07-23 11:26 | Outpatient (BNVA) | payer MEDICAID, SELFPAY | PROVIDERS: PCP Nurse Practitioner Family; Visit Provider Internal Medicine | DX: R79.89 Other specified abnormal findings of blood chemistry (principal); E07.9 Disorder of thyroid, unspecified; E04.2 Nontoxic multinodular goiter; E23.7 Disorder of pituitary gland, unspecified | CPT/HCPCS: 82533; 84146; 84305; 85025 ==

== ENCOUNTER 2023-09-06 16:39 | Outpatient (CLI) | payer MEDICAID, SELFPAY ==
[2023-09-06] MEDS: iohexol 350 mg/mL 500 mL Btl (per mL) IV (17:00)
--- NOTE | 2023-09-06 17:00 | CT_ITS ---
WS: [id number] CT NECK TECHNIQUE: Contrast-enhanced CT of the neck with coronal and sagittal reformatted images. CLINICAL INFORMATION: Enlarged Thyroid COMPARISON: None. DLP: 278.[address] scans at [facility] use at least one of these dose optimization techniques: automated e xposure control; mA and/or kV adjustment per patient size (includes targeted exams where dose is matc hed to clinical indication); or iterative reconstruction. FINDINGS: Enlarged heterogeneously enhancing thyroid compatible with multinodular goiter. Multinodular enlargem ent of the RIGHT greater than LEFT thyroid similar to the prior studies. Multinodular enlargement of the isthmus. Small calcified thyroid nodule RIGHT lower lobe measuring 1.4 cm. Associated mild relati vely symmetric narrowing of the trachea at the thoracic inlet. Normal parotid glands. Normal submandibular glands. No cervical lymphadenopathy. Mild mucosal thicken ing in the paranasal sinuses. Mastoid air cells are well aerated. Normal posterior nasopharynx. Leda l parapharyngeal fat. No evidence of supraglottic or glottic mass. Lung apices are well aerated. IMPRESSION: 1. Enlarged multinodular goiter RIGHT greater than LEFT with multinodular isthmus. Mild RIGHT to LEF T mass effect on the trachea with mild narrowing. 2. Multinodular goiter similar in appearance to the recent studies. 3. No cervical lymphadenopathy. 4. Normal salivary glands. 5. Paranasal sinuses and mastoid air cells are well aerated. Mild mucosal thickening in the ethmoid air cells. 6. No other acute findings.
== END 2023-09-06 16:40 | disposition home or self-care (01) ==
LOC: RAD 16:39
PROVIDERS: PCP Nurse Practitioner Family; Visit Provider Internal Medicine Pulmonary Disease
DX: E04.9 Nontoxic goiter, unspecified (principal); E04.2 Nontoxic multinodular goiter
CPT/HCPCS: 70491; Q9967

== ENCOUNTER 2023-10-08 11:03 | Outpatient (CLI) | payer MEDICAID, SELFPAY ==
[2023-10-08 11:47] LABS: Free T4 Free Thyroxine 0.95 ng/dL (0.82-1.77); Thyroid Stimulating Hormone 3.99 uIU/mL (0.27-4.20)
== END 2023-10-08 11:04 | disposition home or self-care (01) ==
PROVIDERS: PCP Nurse Practitioner Family; Visit Provider Specialist
DX: E04.1 Nontoxic single thyroid nodule (principal)
CPT/HCPCS: 36415; 84439; 84443

== ENCOUNTER 2023-10-23 09:58 | Outpatient (CLI) | payer MEDICAID, SELFPAY ==
[2023-10-23 10:10] VITALS: PULSE 83; RESP 18; O2SAT 98
[2023-10-23] MEDS: albuterol 2.5 mg/3 mL Neb INHALATION (10:10)
[2023-10-23 10:15] VITALS: PULSE 85
== END 2023-10-23 09:59 | disposition home or self-care (01) ==
LOC: RT 09:59
PROVIDERS: PCP Nurse Practitioner Family; Visit Provider Internal Medicine Pulmonary Disease
DX: G47.33 Obstructive sleep apnea (adult) (pediatric) (principal); R94.2 Abnormal results of pulmonary function studies
CPT/HCPCS: 94060; 94726; 94729; J7613

== ENCOUNTER → 2024-02-05 09:20 | Outpatient (BNVA) | payer MEDICAID, SELFPAY | PROVIDERS: PCP Nurse Practitioner Family; Referring Provider Specialist; Visit Provider Nurse Practitioner Family | DX: E05.00 Thyrotoxicosis with diffuse goiter without thyrotoxic crisis or storm (principal) | CPT/HCPCS: 84439; 84481 ==

== ENCOUNTER 2024-02-12 16:12 | Observation (INO) | payer MEDICAID, SELFPAY ==
[2024-02-12] VITALS (15 sets, daily range): BP systolic 99–145; BP diastolic 60–87; PULSE 87–109; RESP 10–29; TEMP 36.2–37.1; O2SAT 90–97; BMI 40.1; BMI 40.5
[2024-02-12] MEDS: sodium chloride 0.9% 1,000 ML 30 ML IV (09:29)
--- NOTE | 2024-02-12 09:50 | ANES.PREANE2 ---
Pre-Anesthetic Assessment Height/Weight: Height 1.75 m Weight 123.377 kg Temp Pulse Resp BP Pulse Ox O2 Del Method 97.2 F L 87 17 113/80 96 Room Air 02/12/24 09:13 02/12/24 09:13 02/12/24 09:13 02/12/24 09:13 02/12/24 09:13 02/12/24 09:24 Operation Date: 02/12/24 10:10 Proposed Procedures p Total Thyroidectomy 84216, E05.00(Not Applicable) - Fab Boss MD Familial anesthetic complications: States he's had 2 surgeries as a child (tonsillectomy and appendectomy). After one of the surgeries he stayed 2 nights in the hospital because he wouldn't wake up. His mother told him he was allergic to anesthesia. Unfortunately no other information is available. Patient denies having been told anything about his temperature increasing or having had a fever during the episode and he has no known family members with anesthetic trouble. Was Beta Alise taken within 24 hours: N/A Was Clonidine taken within 24 hours: N/A Last intake: Intake Last Liquid Date 02/12/24 Last Liquid Time 00:00 Last Solid Date 02/11/24 Last Solid Time 22:00 Social No alcohol and No tobacco Exam alert, oriented x 3, clear to auscultation bilaterally and regular rate & rhythm Airway Mallampati: Class IV Dentition: other (extremely poor dentition; rotting discolored black and broken all over) Pulmonary Sleep Apnea CV/HEM Hypertension Metabolic Morbid Obesity and Thyroid Disease Anesthetic Plan ASA status: 3 Anesthesia: General Risk of > 500 ml blood loss (7ml/kg in children): No Medications/Allergies Home Medications Medication Instructions Recorded Confirmed Last Taken Type albuterol sulfate 90 mcg/actuation 2 inh inhalation Q6H PRN shortness 08/18/22 02/12/24 Unknown Rx aerosol inhaler of breath or wheezing #8 grams acetaminophen 500 mg capsule 500 mg PO Q6H PRN Pain 07/10/23 02/12/24 02/10/24 History nystatin 100,000 unit/gram topical 1 applic topical TID 10 days #60 12/28/23 02/12/24 Unknown Rx powder grams lisinopril 20 mg tablet 20 mg PO DAILY 02/11/24 02/12/24 02/10/24 History methimazole 5 mg tablet 5 mg PO DAILY 02/11/24 02/12/24 02/10/24 History Allergies Allergy/AdvReac Type Severity Reaction Status Date / Time Anesthetics - Amide Type - Allergy ADR-Vomitin Verified 02/11/24 15:12 Select A g Current Medications Generic Name Dose Route Start Last Admin Trade Name Fabricioq PRN Reason Stop Dose Admin Sodium Chloride 1,000 mls @ 30 mls/hr 02/12/24 09:00 02/12/24 09:29 Sodium Chloride 0.9% IV 02/13/24 08:59 30 mls/hr .Q24H HERACLIO Administration PFSH Anesthesia Medical History Obstructive sleep apnea High serum triiodothyronine (T3) Multinodular goiter Essential hypertension Surgical History History of tonsillectomy History of appendectomy Family History Father Heart failure Social History Smoking and tobacco/nicotine status: current every day tobacco/nicotine user cigarettes Packs smoked per day: 1 Years cigarettes smoked: 26 Alcohol intake: never Substance/Drug Use: never Current occupation: not working Data Anesthesia Cardiac Studies: Holter Monitor 08/11/21
--- NOTE | 2024-02-12 10:18 | W.PM.OPSUD ---
Surgery/Procedure H&P Update DATE OF PROCEDURE: February 12, 2024 DATE H&P PERFORMED: 01/28/24 CHANGES TO PREVIOUS DOCUMENTATION: None PRIMARY INDICATION FOR PROCEDURE: - Symptomatic Goiter - Hyperthyroidism PLANNED PROCEDURE: Operation Date: 02/12/24 10:10 Proposed Procedures p Total Thyroidectomy 39971, E05.00(Not Applicable) - Fab Boss MD
[2024-02-12] MEDS: ceFAZolin 3,000 MG in sodium chloride 0.9% (plus) 100 ML 200 MG IV ×2 (10:34→15:48)
[2024-02-12] MEDS: lidocaine-epi 1% 20 mL INJ INJECTION (11:25)
[2024-02-12] MEDS: ceFAZolin 1,000 mg SDV 1000 MG IRRIGATION (11:33)
[2024-02-12] MEDS: fluorescein 1 mg Strip 2 MG XX (14:09)
[2024-02-12] MEDS: EPINEPHrine 1 mg/mL INJ 2 MG XX (14:09)
[2024-02-12] MEDS: thrombin 5,000 unit SDV 5000 UNIT XX (14:10)
[2024-02-12] MEDS: acetaminophen 1,000 MG/100 ML PIGGYBACK 400 MG IV (15:08)
--- NOTE | 2024-02-12 16:41 | P.OP_ITS ---
Operative Report Date of procedure: February 12, 2024 Pre-op diagnosis: - Hyperthyroidism - Symptomatic Goiter Post-op diagnosis: same Post-op findings: Multilobulated Goiter, Right greater than left Procedure done: Total thyroidectomy Implants: None Specimens removed/disposition: Right and left thyroid lobes Pathology: Right and left thyroid lobes Surgeon: Fab Boss Surgeon: Fab Boss MD Wash Rack Operator: Dakota Beck Anesthesia: General Estimated blood loss (mL): 500 IV fluids (mL): 2,000 Urine output (mL): 100 Complications: None Findings: Large, multilobulated goiter, right greater than left Condition: stable Disposition: ICU Brief History: 48 yo wm with a h/o symptomatic goiter and hyperthyroidism who desires surgical therapy. Procedure: The patient was identified in the preop holding area and was taken to the operating room where he was placed on the operating table in the supine position. Anesthesia was obtained with general endotracheal anesthesia with the Nirvana nerve monitoring electrode on the endotracheal tube. Once tube was in the proper position the patient's skin incision was marked out with a marking pen and was injected local anesthesia. The patient was then prepped and draped in the usual sterile fashion. Using 6 and half power loupes the incision was made with 15 blade was carried down through the subcutaneous tissues until the strap muscles were identified using electrocautery and the harmonic scalpel. At this point attention was turned to the right lobe where a circumferential dissection was made around the entire right thyroid lobe. The right lobe was found to be extremely large and multilobulated. Once a an initial circumferential incision was made around the right lobe the thyroid isthmus was dissected off of the trachea was divided using the harmonic scalpel. The dissection was extremely difficult because of the size of the goiter but it was carefully dissected from the underlying tissues while paying attention to preserving the parathyroid glands and the recurrent laryngeal nerve which were all identified and preserved intact in place. All encountered vessels both of the superior pole inferior pole and of the middle thyroid vein were all controlled using ligaclips. This dissection began laterally and was and proceeded medially as the right right lobe was rotated medially. Eventually the recurrent laryngeal nerve and parathyroid glands were encountered and were preserved in place. While protecting the recurrent laryngeal nerve, Dorman's ligament was divided and the right lobe was removed from the patient. The wound was then inspected and irrigated with a copious amount normal saline. Hemostasis was achieved with bipolar cautery. At this point, after confirming the function of the recurrent laryngeal nerve on the right with both direct stimulation and vagal stimulation, attention was turned to the left thyroid lobe which was removed in a similar fashion. Once this was accomplished the wound was irrigated again and inspected for hemostasis which was found to be adequate. At this point a drain was placed in the wound and the wound was closed with interrupted and running subcutaneous Monocryl and an subcuticular Monocryl. The wound was closed with Dermabond and Steri-Strips and the procedure was then terminated. Control of the patient was returned to anesthesia where he underwent an uneventful reversal of anesthesia and extubation and was taken to the recovery room stable condition. There were no operative or anesthetic complications.
--- NOTE | 2024-02-12 16:45 | ANE.PACU2 ---
Inpatient post-anesthesia follow up: Airway intact: Yes Vital signs: Temperature 99.1 F Pulse Rate 82 Respiratory Rate 19 Blood Pressure 113/71 Pulse Oximetry 94 Oxygen Delivery Me thod Room Air Oxygen Flow Rate 2 Fraction of Inspir ed Oxygen Hydration adequate: Yes Nausea and vomiting: No Pain level: 1 Mental status: Baseline
[2024-02-12] MEDS: lactated ringers 1,000 ML 125 ML IV (17:11)
[2024-02-12] MEDS: famotidine 20 mg/2 mL INJ IVP (17:11)
[2024-02-12 17:52] LABS: Calcium 8.1 mg/dL (8.5-10.5)
[2024-02-12 18:22] LABS: Calcium 8.1 mg/dL (8.5-10.5)
[2024-02-12 18:29] LABS: Parathyroid Hormone 119.6 pg/mL (15-65)
[2024-02-12] MEDS: calcium carb-vit d 500mg-200unit 1 Tablet 1 EACH PO (22:03)
[2024-02-12] MEDS: acetaminophen 500 mg Tablet PO (22:40)
[2024-02-12] MEDS: ceFAZolin 3,000 mg SDV 3000 MG IVP (23:04)
[2024-02-13] VITALS (36 sets, daily range): BP systolic 104–141; BP diastolic 51–79; PULSE 57–93; RESP 13–26; TEMP 36.7–37.3; O2SAT 88–97; BMI 40.5
[2024-02-13] MEDS: lactated ringers 1,000 ML 125 ML IV ×2 (01:48→10:56)
[2024-02-13] MEDS: famotidine 20 mg/2 mL INJ IVP (04:09)
[2024-02-13 05:47] LABS: Albumin Level 3.8 g/dL (3.5-5.2)
--- NOTE | 2024-02-13 05:50 | P.PN_ITS ---
Subjective Subjective: 48 yo wm who is POD #1 s/p Total thyroid ectomy for symptomatic goiter with hyperthyroidism. The patient reports that he is having mild pain, but is o/w doing well. Medications: Reviewed: Yes Vitals/I&O/Wt Last Vital Signs Temp 98.0 F 02/13/24 04:00 Pulse 78 02/13/24 05:43 Resp 15 02/13/24 04:00 BP 132/65 02/13/24 04:00 Pulse Ox 94 02/13/24 04:00 O2 Del Method Room Air 02/13/24 04:00 O2 Flow Rate 2 02/12/24 17:53 02/12/24 02/12/24 02/13/24 14:59 22:59 06:59 Intake Total 1100 / 1100 580 / 1680 1240 / 2920 Output Total 100 / 100 50 / 150 Balance 1100 / 1100 480 / 1580 1190 / 2770 Weight last 48 hrs Weight 124.5 kg Weight 123.377 kg Physical Exam Const: COMMON NORMALS: no acute distress, patient oriented x3 and alert HENMT: COMMON NORMALS: normocephalic, atraumatic, hearing grossly normal bilaterally and Normal external nose present HEAD & SCALP: normocephalic and atraumatic FACE & SINUS: normal facial exam NOSE: Normal external nose present Eye: COMMON NORMALS: Equal, round and reactive pupils present, EOMs intact bilaterally and conjunctivae normal CONJUNCTIVA: Yes conjunctivae normal PUPIL: Yes Equal, round and reactive pupils present Neck/C-Spine: COMMON NORMALS: no lymphadenopathy THYROID: other (Thyroid incision intact without swelling; no erythema.) Chest: COMMONS NORMALS: normal inspection of the chest Resp: COMMON NORMALS: normal respiratory effort, No retractions and No use of accessory muscles Cardio: COMMON NORMALS: regular rate, regular rhythm and No murmurs present (Cardio) RATE: regular rate RHYTHM: regular rhythm GI: COMMON NORMALS: Normal to inspection, nondistended, normoactive bowel sounds present Extremity: COMMON NORMALS: normal to inspection Neuro: COMMON NORMALS: patient oriented x3 and CN's II-XII intact bilaterally SENSORIUM/ORIENTATION: Yes alert and Yes other (Voice unchanged from preop.) Urinary Catheter Management: Melgar: Cath Placed During This Visit: yes Urinary Catheter Date of Insertion: 02/12/24 Urinary Catheter Time of Insertion: 10:45 Data Other data: PTH level (post op) = 119 A&P Assessment and plan (1) Multinodular goiter: Impression: POD #1 doing well s/p total thyroidectomy Plan: - Continue current care - Will withdraw Methimizole and start Synthroid after discharge. 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
[2024-02-13] MEDS: ceFAZolin 3,000 mg SDV 3000 MG IVP (07:47)
[2024-02-13] MEDS: calcium carb-vit d 500mg-200unit 1 Tablet 1 EACH PO ×2 (08:03→15:01)
[2024-02-13] MEDS: methIMAzole 5 MG Tablet PO (08:03)
[2024-02-13] MEDS: lisinopril 20 mg Tablet PO (08:03)
[2024-02-13] MEDS: docusate sodium 100 mg Capsule PO (08:03)
[2024-02-13] MEDS: neomycin-poly-bacitracin oint 28 gm 1 APPLIC TOPICAL ×2 (08:04→15:02)
--- NOTE | 2024-02-13 16:41 | P.DS_ITS ---
Discharge Providers Date of Admission: 02/12/24 16:12 Date of Discharge: February 13, 2024 Attending Provider at Admission: Fab Boss MD Attending Provider at Discharge: Fab Boss MD Consults: None Primary Care Provider: Altagracia Stock NP Diagnoses at Discharge Discharge Diagnosis (1) Multinodular goiter: Details from hospital stay: The patient underwent a total thyroidectomy on the day of admission and was transferred postoperatively today intensive care unit for airway monitoring. Th e patient's labs that evening found that his parathyroid hormone level was elevated and his serum calcium level was slightly below normal. The patient was observed overnight and did well without incident and was discharged in the afternoon of postoperative day number #1 in stable condition. Status: Acute (2) Hyperthyroidism: Details from hospital stay: See the above Status: Acute (3) Parathyroid abnormality: Details from hospital stay: The patient's first postoperative parathyroid hormone level was found to be abnormally high. The plan was to evaluate this further after discharge. Status: Acute Reason for Visit Reason for Visit: E05.00 Brief History: The patient is a 48-year-old white male with a history of symptomatic toxic multinodular goiter who desired total thyroidectomy for therapy. Hospital Course Hospital Course The patient was admitted on 12 February 2024 for surgical therapy of his symptomatic multinodular goiter and hyperthyroidism. The patient underwent a total thyroidectomy on the day of admission and was transferred to the intensive care unit for postoperative monitoring. The patient's first postop labs showed an elevated parathyroid hormone level and a slightly decreased serum calcium level. The patient did well overnight without incident. The patient had minimal postoperative pain and was taking po well at the time of d/c. The patient was instructed in the use of his DWIGHT drain and was discharged in the afternoon of postoperative day #1 in stable condition. Physical Exam Const: COMMON NORMALS: no acute distress, patient oriented x3 and alert HENMT: COMMON NORMALS: normocephalic, atraumatic and Normal external nose present HEAD & SCALP: normocephalic and atraumatic FACE & SINUS: normal facial exam and face symmetric NOSE: Normal external nose present Eye: COMMON NORMALS: Equal, round and reactive pupils present, EOMs intact bilaterally and conjunctivae normal CONJUNCTIVA: Yes conjunctivae normal PUPIL: Yes Equal, round and reactive pupils present Neck/C-Spine: COMMON NORMALS: no lymphadenopathy GENERAL: Yes other (Thyroid incision without swelling or erythema.) Chest: COMMONS NORMALS: normal inspection of the chest Resp: COMMON NORMALS: normal respiratory effort, No retractions, No use of accessory muscles and clear to auscultation bilaterally AUSCULTATION: clear to auscultation bilaterally Cardio: COMMON NORMALS: regular rate, regular rhythm and No murmurs present (Cardio) RATE: regular rate RHYTHM: regular rhythm Extremity: COMMON NORMALS: normal to inspection Neuro: COMMON NORMALS: patient oriented x3 and CN's II-XII intact bilaterally SENSORIUM/ORIENTATION: Yes alert and Yes other (The patient's voice was unchanged from preop.) Urinary Catheter Management: Melgar: Cath Placed During This Visit: yes Urinary Catheter Date of Insertion: 02/12/24 Urinary Catheter Time of Insertion: 10:45 Discharge Data Studies Completed and Pending Pending at discharge Category Date Time Status Parathyroid With Calcium Routine Lab 02/12/24 15:53 Uncollected Pathology: Surgical [PTH] Routine Pth 02/12/24 16:43 Received Laboratory Results Calcium 9.0 mg/dL (8.5-10.5) 02/13/24 05:06 Albumin 3.8 g/dL (3.5-5.2) 02/13/24 05:06 PTH Intact 119.6 pg/mL (15-65) H 02/12/24 17:15 Calcium (PTH Intact) 8.1 mg/dL (8.5-10.5) L 02/12/24 17:15 Procedures Performed Total thyroidectomy Vitals Last Vital Signs Temp 99.1 F 02/13/24 12:00 Pulse 82 02/13/24 16:00 Resp 19 H 02/13/24 16:00 BP 113/71 02/13/24 16:00 Pulse Ox 94 02/13/24 16:00 O2 Del Method Room Air 02/13/24 16:00 O2 Flow Rate 2 02/12/24 17:53 Discharge Plan Discharge Patient Disposition: Home Condition: Stable Prescriptions: New hydrocodone-acetaminophen 5-325 mg tablet 1 tab PO Q6H PRN (Reason: pain) Qty: 25 0RF calcium carbonate-vitamin D3 [Oyster Shell Calcium-Vit D3] 500 mg-5 mcg (200 unit) Tablet 1 tab PO TID Qty: 90 0RF doxycycline hyclate 100 mg capsule 100 mg PO Q12H 10 Days Qty: 20 0RF levothyroxine [Synthroid] 150 mcg tablet 150 mcg PO DAILY Qty: 30 5RF Continued nystatin 100,000 unit/gram powder 1 applic topical TID 10 Days Qty: 60 0RF lisinopril 20 mg tablet 20 mg PO DAILY Rx Instructions: TAKE ONE TABLET BY MOUTH ONCE DAILY albuterol sulfate 90 mcg/actuation HFA aerosol inhaler 2 inh INHALATION Q6H PRN (Reason: shortness of breath or wheezing) Qty: 8 0RF Discontinued acetaminophen 500 mg capsule 500 mg PO Q6H PRN (Reason: Pain) methimazole 5 mg tablet 5 mg PO DAILY Rx Instructions: TAKE ONE TABLET BY MOUTH ONCE DAILY Discharge Orders: Discharge Order (Routine); Ordered 02/13/24 Ordered By: Fab Boss Discharge Diet: Advance as tolerated and Usual diet Discharge Activity: Resume usual activity Patient Instructions: Acute Wound Care (DC), Opioid Safety, Post Anesthesia Care Activity Restrictions/Additional Instructions: - Empty DWIGHT drain and record output QD - Apply CINDY to the drain site TID - Resume preop medications - Notify Dr. Boss for any problems - F/U in Dr. Boss's office on 02/15/24 - Take all medications as prescribed - Keep wound dry for 48 hours Discharge Attestations Time Spent in Discharge Care*: greater than 30 min Quality Metrics Clinical Quality Measures [ No reported AMI, CVA or VTE this stay] Coding Level of Care Code Acute Code for Chg Fwd Diagnoses Multinodular goiter E04.2 Hyperthyroidism E05.90 Parathyroid abnormality E21.5
--- NOTE | 2024-02-13 18:49 | PC.NURSE ---
Discharged patient. medications sent to [facility] pharmacy on [facility] [facility]. IV removed. Educaiton on new medication, drain management, and dressing changes. Patient already has a preexisting followup appointment with Dr schumacher on 02/15/2024 so no new appointment needed. Patient signature form signed.
== END 2024-02-13 17:15 | disposition home or self-care (01) ==
LOC: ICU 23:28
PROVIDERS: Admitting Provider Specialist; PCP Nurse Practitioner Family; Visit Provider Specialist
PROC: (CPT 60240; principal; 2024-02-12 09:50)
DX: E05.90 Thyrotoxicosis, unspecified without thyrotoxic crisis or storm (principal); I10 Essential (primary) hypertension; E66.01 Morbid (severe) obesity due to excess calories; Z68.41 Body mass index [BMI] 40.0-44.9, adult; G47.33 Obstructive sleep apnea (adult) (pediatric); F17.210 Nicotine dependence, cigarettes, uncomplicated
CPT/HCPCS: 60240; 36415; 51702; 82040; 82310; 83970; 88307; G0378; J0131; J0171; J0330; J0690; J1100; J1170; J2250; J2371; J2405; J2704; J3010; J3490; J7030; J7120; P9045

== ENCOUNTER → 2024-03-06 11:25 | Outpatient (BNVA) | payer MEDICAID, SELFPAY | PROVIDERS: PCP Nurse Practitioner Family; Visit Provider Internal Medicine | DX: E07.9 Disorder of thyroid, unspecified (principal); E23.7 Disorder of pituitary gland, unspecified; E04.2 Nontoxic multinodular goiter; R79.89 Other specified abnormal findings of blood chemistry | CPT/HCPCS: 36415; 80053; 82306; 82310; 83970; 84439 ==

== ENCOUNTER → 2024-03-17 09:17 | Outpatient (BNVA) | payer MEDICAID, SELFPAY | PROVIDERS: PCP Nurse Practitioner Family; Visit Provider Internal Medicine | DX: E07.9 Disorder of thyroid, unspecified (principal); E23.7 Disorder of pituitary gland, unspecified; E04.2 Nontoxic multinodular goiter; R79.89 Other specified abnormal findings of blood chemistry | CPT/HCPCS: 80053; 82306; 82310; 83970; 84439 ==

== ENCOUNTER → 2024-05-08 09:36 | Outpatient (BNVA) | payer MEDICAID, SELFPAY | PROVIDERS: PCP Nurse Practitioner Family; Visit Provider Internal Medicine | DX: E03.9 Hypothyroidism, unspecified (principal); E07.9 Disorder of thyroid, unspecified; E23.7 Disorder of pituitary gland, unspecified; E04.2 Nontoxic multinodular goiter; R79.89 Other specified abnormal findings of blood chemistry | CPT/HCPCS: 80053; 82306; 82310; 83970; 84439; 84443 ==

== ENCOUNTER → 2024-07-02 14:59 | Outpatient (BNVA) | payer MEDICAID, SELFPAY | PROVIDERS: PCP Nurse Practitioner Family; Visit Provider Nurse Practitioner Family | DX: E07.9 Disorder of thyroid, unspecified (principal); E04.2 Nontoxic multinodular goiter; R79.89 Other specified abnormal findings of blood chemistry; E89.0 Postprocedural hypothyroidism; E55.9 Vitamin D deficiency, unspecified | CPT/HCPCS: 80053; 82306; 84146; 84439; 84443 ==

== ENCOUNTER → 2024-08-08 11:47 | Outpatient (BNVA) | payer MEDICAID, SELFPAY | PROVIDERS: PCP Nurse Practitioner Family; Visit Provider Nurse Practitioner Family | DX: J02.9 Acute pharyngitis, unspecified (principal); R05.9 Cough, unspecified | CPT/HCPCS: 87071; 87400; 87420; 87426; 87880 ==

== ENCOUNTER → 2024-10-15 09:17 | Outpatient (BNVA) | payer MEDICAID, SELFPAY | PROVIDERS: PCP Nurse Practitioner Family; Visit Provider Internal Medicine | DX: E07.9 Disorder of thyroid, unspecified (principal); E04.2 Nontoxic multinodular goiter; R63.5 Abnormal weight gain; R79.89 Other specified abnormal findings of blood chemistry; E89.0 Postprocedural hypothyroidism; K59.00 Constipation, unspecified; K64.9 Unspecified hemorrhoids; E55.9 Vitamin D deficiency, unspecified | CPT/HCPCS: 80053; 84439; 84443 ==

== ENCOUNTER → 2024-12-22 08:50 | Outpatient (BNVA) | payer MEDICAID, SELFPAY | PROVIDERS: PCP Nurse Practitioner Family; Visit Provider Internal Medicine | DX: E03.9 Hypothyroidism, unspecified (principal); E55.9 Vitamin D deficiency, unspecified | CPT/HCPCS: 80053; 82306; 84439; 84443; 84480 ==

== ENCOUNTER → 2025-01-27 07:15 | Outpatient (BNVA) | payer MEDICAID, SELFPAY | PROVIDERS: PCP Nurse Practitioner Family; Visit Provider Nurse Practitioner Family | DX: E55.9 Vitamin D deficiency, unspecified (principal); K64.9 Unspecified hemorrhoids; K59.00 Constipation, unspecified; E89.0 Postprocedural hypothyroidism; R79.89 Other specified abnormal findings of blood chemistry; R63.5 Abnormal weight gain | CPT/HCPCS: 80053; 82306; 84439; 84443 ==

== ENCOUNTER → 2025-03-11 09:34 | Outpatient (BNVA) | payer MEDICAID, SELFPAY | PROVIDERS: PCP Nurse Practitioner Family; Visit Provider Nurse Practitioner Family | DX: E03.9 Hypothyroidism, unspecified (principal) | CPT/HCPCS: 84439; 84443 ==

== ENCOUNTER 2025-03-18 08:46 | Outpatient (CLI) | payer MEDICAID, SELFPAY ==
--- NOTE | 2025-03-18 09:30 | MR_ITS ---
WS: [id number] MRI HEAD WITHOUT CONTRAST TECHNIQUE: Sagittal T1, T2 axial, T2 axial FLAIR, axial and coronal T1 images, axial susceptibility weighted imaging, axial diffusion weighted images, and coronal T2 images were obtained. CLINICAL INFORMATION: G31.84 - Mild cognitive impairment of uncertain or unknow... COMPARISON: 2022 FINDINGS: No evidence of restricted diffusion to suggest acute ischemia. Ventricular system and basal cisterns are patent. 2 or 3 tiny foci of T2 hyperintensity in the periventricular and subcortical white matter of doubtful clinical significance. No significant parenchymal volume loss. Normal posterior fossa. Normal vascular flow voids at the skull base. No extra- axial fluid collections. Mild mucosal thickening in the ethmoid air cells. Mastoid air cells are well aerated. No hemosiderin on susceptibility-weighted images. Normal optic chiasm and pituitary infundibulum. MR/MR head wo con* [id number] IMPRESSION: 1. No evidence of restricted diffusion to suggest acute ischemia. 2. A few tiny foci of T2 hyperintensity in the supratentorial white matter can be seen with hypertension, diabetes, and migraine headaches. No significant pa renchymal volume loss. 3. No hemosiderin on susceptibility-weighted images. 4. Normal optic chiasm and pituitary infundibulum. 5. No other acute findings.
== END 2025-03-18 08:47 | disposition home or self-care (01) ==
LOC: RAD 08:48
PROVIDERS: PCP Nurse Practitioner Family; Visit Provider Nurse Practitioner Family
DX: G31.84 Mild cognitive impairment of uncertain or unknown etiology (principal); I10 Essential (primary) hypertension; E11.9 Type 2 diabetes mellitus without complications; G43.009 Migraine without aura, not intractable, without status migrainosus; R90.82 White matter disease, unspecified
CPT/HCPCS: 70551

== ENCOUNTER → 2025-06-03 09:30 | Outpatient (BNVA) | payer MEDICAID, SELFPAY | PROVIDERS: PCP Nurse Practitioner Family; Visit Provider Nurse Practitioner Family | DX: R45.86 Emotional lability (principal); E03.9 Hypothyroidism, unspecified; R53.83 Other fatigue | CPT/HCPCS: 84439; 84443 ==